=== PATIENT | female | born 1950 | race Caucasian/White ===

== ENCOUNTER → 2016-06-17 20:19 | Outpatient (CLI) | payer MEDICARE, OTHER ==
[2011-04-25 15:24] VITALS: BMI 44.4
[~2016-06-17 20:19] MED LIST: CALCIUM 500 + D1 TAB PO; COUMADIN2.5 MG PO; DYMISTA NASAL; FERROUS SULFAT325 MG PO; FUROSEMIDE20 MG PO; LOTENSIN20 MG PO; OMEPRAZOLE20 M1 PO; PROAIR HFA8.5 GM INH; SINGULAIR10 MG PO; TRACLEER125 MG PO; ZOLOFT100 MG PO
[2016-08-25 12:16] VITALS: BMI 48.1
== END | disposition home or self-care (01) ==
LOC: D.SLEEP 06-12 20:00
DX: G47.33 Obstructive sleep apnea (adult) (pediatric) (principal)

== ENCOUNTER → 2016-07-02 20:10 | Outpatient (CLI) | payer MEDICARE, OTHER ==
[2011-04-25 15:24] VITALS: BMI 44.4
[2016-08-25 12:16] VITALS: BMI 48.1
== END | disposition home or self-care (01) ==
LOC: D.SLEEP 20:00
DX: G47.33 Obstructive sleep apnea (adult) (pediatric) (principal)

== ENCOUNTER 2016-08-21 20:17 | Observation (INO) | payer MEDICARE, OTHER ==
[~2016-08-21] VITALS: Ht 175.3 cm; Wt 147.7 kg
[2016-08-21 21:15] LABS: BASOPHILS 0.4 % (0.0-2.0); HEMATOCRIT 41.6 % (36.0-48.0); HEMOGLOBIN 13.4 g/dL (12-16); IMMATURE GRANULOCYTES 0.2 % (0-5); LYMPHOCYTES 31.3 % (15-50); MCH 29.5 pg (26.0-34.0); MCHC 32.2 g/dL (31.0-37.0); MCV 91.4 fL (80.0-100.0); MEAN PLATELET VOLUME 11.2 fL (7.4-10.4); MONOCYTES 7.2 % (2-11); NEUTROPHILS 59.9 % (40-80); PLATELET COUNT 177 10x3/uL (130-400); RBC 4.55 10x6/uL (4.00-5.40); RDW 14.4 % (11.5-14.5); WBC 9.1 10x3/uL (4.8-10.8)
[2016-08-21 21:27] LABS: ALBUMIN 3.7 g/dL (3.4-5.0); ALKALINE PHOSPHATASE 60 U/L (46-116); ALT (SGPT) 21 U/L (10-68); BILIRUBIN - TOTAL 0.37 mg/dL (0.2-1.3); CALC OSMOLALITY 288 mosm/kg (275-300); CALCIUM 9.2 mg/dL (8.5-10.1); CARBON DIOXIDE 30.9 mmol/L (21.0-32.0); CHLORIDE - SERUM 106 mmol/L (98-107); CREATININE - SERUM 1.2 mg/dL (0.6-1.3); GLUCOSE 96 mg/dL (74-106); POTASSIUM - SERUM 4.1 mmol/L (3.5-5.1); PROTEIN - SERUM 7.6 g/dL (6.4-8.2); SODIUM 143 mmol/L (136-145); UREA NITROGEN 25 mg/dL (7-18); eGFR NON AFRICAN AMERICAN 48 mL/min (90-120)
[2016-08-21 21:40] LABS: CKMB 1.3 U/L (0.0-3.6); CREATINE KINASE 56 UL (21-215); TROPONIN-I < 0.017 ng/mL (0.000-0.060)
[2016-08-21 23:23] LABS: PROTIME 25.4 SECONDS (11.6-15.0)
[2016-08-21 23:24] LABS: D-DIMER-QUANTITATIVE < 0.27 ug/mLFEU (0.20-0.54)
[2016-08-22] VITALS: BP 142/85
--- NOTE | 2016-08-22 01:00 | NUR ---
PT ARRIVES TO FLOOR VIA WC FROM ER ACCOMPANIED BY ER NURSE. INITIAL ASSESSMENT COMPLETED, VSS, AFEBRILE. MEDICATIONS RECONCILED AT THE BEDSIDE. UNIT ROUTINES AND PROTOCOLS DISCUSSED WITH PT AND SHE VERBALIZES UNDERSTANDING. CALL LIGHT WITHIN REACH. WILL CONT TO MONITOR.
[2016-08-22] MEDS ORDERED: TRACLEER125 MG PO (01:09)
[2016-08-22] MEDS ORDERED: LOTENSIN20 MG PO (01:09)
[2016-08-22] MEDS ORDERED: COUMADIN2.5 MG PO (01:10)
[2016-08-22] MEDS ORDERED: SINGULAIR10 MG PO (01:10)
[2016-08-22] MEDS ORDERED: OMEPRAZOLE20 M1 PO (01:10)
[2016-08-22] MEDS ORDERED: ZOLOFT100 MG PO (01:10)
[2016-08-22] MEDS ORDERED: DYMISTA NASAL (01:13)
[2016-08-22] MEDS ORDERED: PROAIR HFA8.5 GM INH (01:14)
[2016-08-22] MEDS ORDERED: FERROUS SULFAT325 MG PO (01:14)
[2016-08-22] MEDS ORDERED: CALCIUM 500 + D1 TAB PO (01:14)
[2016-08-22 01:15] VITALS: Ht 175.3 cm; Wt 147.7 kg
[2016-08-22 04:00] VITALS: BP 118/72
[2016-08-22 07:07] LABS: CKMB 1.5 U/L (0.0-3.6); CREATINE KINASE 47 UL (21-215); TROPONIN-I < 0.017 ng/mL (0.000-0.060)
[2016-08-22 09:09] VITALS: BP 114/65
--- NOTE | 2016-08-22 09:33 | NUR ---
RESTS IN BED WITHOUT NEEDS VOICED. TELEMETRY SR. WILL CONT. PLAN OF CARE.
[2016-08-22 12:31] LABS: CKMB 1.4 U/L (0.0-3.6); CREATINE KINASE 49 UL (21-215); TROPONIN-I < 0.017 ng/mL (0.000-0.060)
[2016-08-22 12:38] VITALS: BP 129/75
--- NOTE | 2016-08-22 14:02 | CN ---
PATIENT NAME:VIN LABOY MEDICAL RECORD: [id number] : 50 LOCATION:D.M2 D.2121 ADMIT DATE: 08/22/16 ACCOUNT: [id number] CONSULTING PHYSICIAN: CECY PETTIT MD REFERRING PHYSICIAN: MEENA PHELPS MD DATE OF CONSULTATION: 08/22/2016 HISTORY OF PRESENT ILLNESS: A 65-year-old lady with no known cardiovascular history. She has a history of hypertension as well as pulmonary hypertension. This actually improved on disease modifying therapies, also on GOOD inhibitor for hypertension, has been having chest tightness and pressure with exertion, difficult to say if this is more of a pulmonary versus true ischemic. She has a right bundle branch block consistent with pulmonary hypertension, does not have voltage criteria for RVH. We are asked to see her concerning her cardiovascular status. PAST MEDICAL HISTORY: 1. History of hypertension. 2. Pulmonary hypertension. 3. Dyslipidemia. 4. Long-term use of high risk medication. ALLERGIES: None known. MEDICATIONS: Include omeprazole 20 mg p.o. day, Singulair 10 p.o. q.h.s., TriCor 120 p.o. b.i.d., Zoloft 100 daily, Lotensin 20 b.i.d., Coumadin scale, albuterol. SOCIAL HISTORY: Lives here in [place], , nonsmoker. He takes care of her ADLs, does try to walk. PHYSICAL EXAMINATION: GENERAL: Pleasant gentleman, in no acute distress. VITAL SIGNS: Blood pressure 118/72; pulse 70, regular. HEENT: Normocephalic, atraumatic. NECK: No JVD or bruit. HEART: Regular, probable right ventricular gallops. LUNGS: Actually fairly good air excursion. ABDOMEN: Soft and nontender. EXTREMITIES: Pulses 2+. There is 1+ edema. NEUROLOGIC: Grossly intact. DIAGNOSTIC DATA: ECG is abnormal as described above. IMPRESSION: Questionable progressive exertional angina. PLAN: We will plan for diagnostic angiography. We would prefer for Coumadin to come and we will plan this Thursday, can be done as an outpatient. INRs have been quite stable and did not want to reverse this if all possible. TRANSINT:[id number] Voice Confirmation ID: [id number] DOCUMENT ID: [id number] CONSULT REPORT [id number] LABOY,CECY ORTIZ MD at 1402 CC: [id number] DICTATION DATE: 08/22/16 0857 DISK RECORDIST: 08/22/16 1249 ADM IN [facility] [address] [place] [address]
--- NOTE | 2016-08-22 15:42 | NUR ---
IV AND TELEMETRY DCD. DC PLANS GIVEN. UNDERSTANDING VOICED. ESCORTED TO CAR BY W/C.
== END 2016-08-22 15:43 | disposition home or self-care (01) ==
LOC: D.ER 20:17 → D.M2 08-22 00:19 → OBSVTIME 08-22 00:19 → D.M2 08-22 00:19
PROVIDERS: Emergency Medicine; ADMIT Family Medicine Adult Medicine
DX: R07.9 Chest pain, unspecified (principal); I10 Essential (primary) hypertension; I27.2 Other secondary pulmonary hypertension; E78.5 Hyperlipidemia, unspecified; G47.33 Obstructive sleep apnea (adult) (pediatric)

== ENCOUNTER 2016-08-25 11:24 | Outpatient (CLI) | payer MEDICARE, OTHER ==
[~2016-08-25] VITALS: Ht 175.3 cm; Wt 147.7 kg
--- NOTE | ~2016-08-25 | HEMODYNAMI ---
PATIENT:VIN LABOY MEDICAL RECORD: [id number] : 50 LOCATION:D.CAT ADMISSION DATE: 08/25/16 Generatedon:08/25/201614:42 Patient name: VIN LABOY Patient #: [id number] SSN: D OB: 1950 Date of study: 08/25/2016 Page: Of Hemodynamic Procedure Report Patient Data Patient Demographics Procedure consent was obtained First Name: VIN Gender: Female Last Name: NARDA : 1950 Middle Initial: A Age: 65 year(s) Patient #: [id number] Race: Additional ID: [id number] Contact details Address: [address] [place] [address] State: [place] City: [facility] Zip code: [address] Past Medical History Allergies Allergen Reaction Date Comments Reported Other allergy 08/25/2016 Flu Shots Admission Admission Data Admission Date: 08/25/2016 Admission Time: 11:24 Height (in.): 69 BSA: 2.54 (m2) Height (cm.): 175.26 BMI: 47.99 (kg/m2) Weight (lbs.): 325 Weight (kg.): 147.42 Lab Results Lab Result Date: 08/25/2016 Lab Result Time: 0:00 Biochemistry Name Units Result Min Max Creatinine mg/dl 1.1 --(--*-)-- 0.6 1.3 CBC Name Units Result Min Max Hemoglobin g/dl 13 -*(----)-- 13.5 17.5 Coagulation Name Units Result Min Max INR units 1.82 --(----)-* 0.85 1.17 PT sec 21 --(----)-* 11.6 15 Procedure Procedure Types Cath Procedure Diagnostic Procedure [facility] w/Coronaries Miscellaneous Procedures Moderate Sedation up to 15 minutes Procedure Description Procedure Date Procedure Date: 08/25/2016 Procedure Start Time: 14:12 Procedure End Time: 14:35 Procedure Staff Name Function Shay Hall MD Performing Physician Roger Summers RT Scrub Marcio Barkley RN Nurse Lora Young RT Monitor Wellington Becker RT Monitor Melissa De La Torre RT Monitor Marleni Arreola RN Nurse Procedure Data Cath Procedure Fluoroscopy Diagnostic fluoroscopy Total fluoroscopy Time: 6.4 time: 6.4 min min Diagnostic fluoroscopy Total fluoroscopy dose: dose: 1144 mGy 1144 mGy Contrast Material Contrast Material Type Amount (ml) Isovue 300 81 Entry Location Entry Primary Successful Side Size Upsize Upsize Entry Closure [place] ccessful Closure Location (Fr) 1 (Fr) 2 (Fr) Remarks Device Remarks Radial Right 6 Fr Mechanical tr band artery Short Compression Femoral Right 5 Fr Exoseal artery Estimated blood loss: 10 ml Diagnostic catheters Device Type Used For End Catheter Placement Terumo 5Fr [place] 110cm Procedure catheter Diagnostic Infinity 5Fr Right Coronary 3DRC catheter Angiography Procedure Complications No complications Procedure Medications Medication Administration Route Dosage Oxygen NC 2 l/min Heparin Flush Bag added to field 2 bags (1000units/500ml NS) 0.9% NaCl I.V. 100 ml/hr Radial Cocktail added to field 1 syringe (Verapomil 2mg/Nitro 400mcg/Heparin 1500units) Fentanyl I.V. 50 mcg Versed I.V. 1 mg Fentanyl I.V. 50 mcg Versed I.V. 1 mg Fentanyl I.V. 50 mcg Radial Cocktail I.A. 1 syringe (Verapomil 2mg/Nitro 400mcg/Heparin 1500units) Fentanyl I.V. 50 mcg Hemodynamics Rest BSA: 2.54 (m2) HGB: 13 (g/dl) O2 Consumption: Estimated: 249.75 (ml/min) O2 Cons umption indexed: Estimated:98.33 (ml/min/m) Heart Rate: 83 (bpm) Pressure Samples Time Site Value (mmHg) Purpose Heart Use Rate(bpm) 14:16 LV 106/5,12 Snapshot 63 Gradients Valve Time Site Site Mean SEP/DFP Peak To Heart Use 1 2 (mmHg) (sec/min) Peak Rate (mmHg) (bpm) Aortic 14:17 LV AO 89 Snapshots Pre Cath Intra NCS Post Cath Vital Signs Time Heart Resp SPO2 NIBP (mmHg) Rhythm Pain Sedation Rate (ipm) (%) Status Level (bpm) 13:47:20 89 29 94 165/90(132) NSR 0 (11) 10(A) , No pain 13:51:47 85 18 94 154/93(126) NSR 0 (11) 10(A) , No pain 13:56:19 84 18 94 140/88(109) NSR 0 (11) 10(A) , No pain 14:00:43 86 19 94 151/89(118) NSR 0 (11) 10(A) , No pain 14:05:13 84 19 95 154/85(106) NSR 0 (11) 10(A) , No pain 14:09:44 65 18 96 137/86(100) NSR 0 (11) 10(A) , No pain 14:14:47 65 19 94 130/72(104) NSR 0 (11) 10(A) , No pain 14:19:03 71 18 93 127/82(99) NSR 0 (11) 10(A) , No pain 14:23:23 70 16 93 131/87(113) NSR 0 (11) 10(A) , No pain 14:27:47 70 16 93 121/83(107) NSR 0 (11) 10(A) , No pain 14:32:07 68 17 94 139/80(105) NSR 0 (11) 10(A) , No pain Medications Time Medication Route Dose Verified Delivered Reason Notes Effectiveness by by 13:45:09 Oxygen NC 2 l/min Marcio Buckley Per Filippo Barkley RN physician RN 13:45:19 Heparin Flush added 2 bags Marcio Buckley used for Bag to Filippo Barkley vibration analyst (1000units/500ml field RN NS) 13:45:30 0.9% NaCl I.V. 100 Marcio Buckley Per ml/hr Filippo Barkley RN physician RN 14:07:34 Radial Cocktail added 1 Marcio Marcio used for (Verapomil to syringe Filippo Barkley vibration analyst 2mg/Nitro field RN 400mcg/Heparin 1500units) 14:08:00 Fentanyl I.V. 50 mcg Marcio Marcio for sedation Filippo Barkley RN RN 14:08:07 Versed I.V. 1 mg Marcio Marcio for sedation Filippo Barkley RN RN 14:10:25 Fentanyl I.V. 50 mcg Marcio Marcio for sedation Filippo Barkley RN RN 14:10:30 Versed I.V. 1 mg Marcio Buckley for sedation Filippo Barkley RN RN 14:14:06 Fentanyl I.V. 50 mcg Marcio Buckley for sedation Filippo Barkley RN RN 14:15:09 Radial Cocktail I.A. 1 Marcio Day for (Verapomil syringe Filippo Hall vasodilation 2mg/Nitro RN 400mcg/Heparin 1500units) 14:15:16 Fentanyl I.V. 50 mcg Marcio Buckley for sedation Filippo Barkley RN auto electrical technician Log Time Note 13:22:14 Diagnostic Cath Status : Elective 13:23:27 Time tracking: Regular hours 13:23:31 Plan of Care:Hemodynamics will remain stable., Cardiac rhythm will remain stable., Comfort level will be maintained., Respiratory function will remain adequate., Patient/ family verbilizes understanding of procedure., Procedure tolerated without complication., Recovers from procedure without complications.. 13:26:05 Marcio Barkley RN sent for patient. Start room use. 13:30:27 Lab Result : Creatinine 1.1 mg/dl 13:30:27 Lab Result : PT 21 sec 13:30:27 Lab Result : Hemoglobin 13 g/dl 13:30:27 Lab Result : INR 1.82 units 13:32:47 Patient received from Pre/Post Procedure Room to CCL 1 Alert and oriented. Tansferred to table in Supine position. 13:32:49 Warm blankets applied, and atiya hugger turned on for patient comfort. 13:32:51 Correct patient and procedure confirmed by team. 13:32:53 Signed procedure consent form obtained from patient. 13:32:54 ECG and BP/O2 sat monitors applied to patient. 13:32:54 Full Disclosure recording started 13:45:09 Oxygen 2 l/min NC was given by Marcio Barkley RN; Per physician; 13:45:19 Heparin Flush Bag (1000units/500ml NS) 2 bags added to field was given by Marcio Barkley RN; used for procedure; 13:45:30 0.9% NaCl 100 ml/hr I.V. was given by Marcio Barkley RN; Per physician; 13:45:57 Vital chart was started 13:47:36 Baseline sample Acquired. 13:47:43 Rhythm: sinus rhythm 13:48:52 H&P Date Dictated: 08/25/2016 Within 30 days and on chart.. 13:49:02 Pre-procedure instructions explained to patient. 13:49:03 Pre-op teaching completed and patient verbalized understanding. 13:49:04 Family in waiting room. 13:49:07 Patient NPO since Midnight. 13:49:20 Patient allergic to Other allergyFlu Shots 13:49:23 Is the patient allergic to Iodine/contrast media? No. 13:49:26 Is patient on blood thinner?No 13:49:45 Patient diabetic? No. 13:49:52 Previous problem with sedation/anesthesia? No ? 13:49:53 Snore? Yes 13:49:54 Sleep apnea? Yes 13:49:55 Deviated septum? No 13:49:56 Opens mouth fully? Yes 13:49:56 Sticks out tongue? Yes 13:50:00 Airway obstruction? No ? 13:50:04 Dentures? No ? 13:50:08 Pre procedure: right dorsailis pedis pulse 2+ Normal; easily identifiable; not easily obliterated 13:50:10 Modified Corey's test Ulnar < 7 seconds 13:50:12 Patient pain scale 0/10 ?. 13:50:17 IV patent on arrival in left hand with 0.9% NaCl at O. 13:50:21 Lab results completed and on chart. 13:50:25 Right Radial & Right Groin area was prepped with chlora-prep and draped in sterile fashion 13:50:26 Alarms reviewed by R. N. 13:50:26 Sharps counted by scrub and verified by R.N. 13:50:29 Use device set Radial Dx 13:50:30 Acist Syringe opened to sterile field. 13:50:30 Medline Cath Pack opened to sterile field. 13:50:31 Bag Decanter opened to sterile field. 13:50:31 Terumo 6Fr Slender Glidesheath opened to sterile field. 13:50:31 St Greg 260cm J .035 wire opened to sterile field. 13:50:32 Acist Hand Control opened to sterile field. 13:50:33 Acist Manifold opened to sterile field. 13:50:33 Tegaderm 4 x 4 opened to sterile field. 13:58:03 --------ALL STOP TIME OUT------ 13:58:03 Final Timeout: patient, procedure, and site verified with staff and physician. All members of the team are in agreement. 13:58:06 Right Radial & Right Groin site verified by team. 13:58:09 Physical assessment completed. ASA score P 2 - A patient with mild systemic disease as per Shay Hall MD. 13:58:15 Sedation plan: IV Moderate Sedation Versed, Fentanyl 13:58:40 Lora Young RT(R) was relieved by Wellington Becker RT(R) as monitoring person 13:58:56 ACC Patient presents with Stable Angina CCS Anginal Class 2--Slight limitation of ordinary activity. 13:59:28 Patient Weight : 147.42 kg 13:59:32 Patient Height : 175.26 cm 14:00:26 Zero performed for pressure channel P1 14:00:45 Zero performed for pressure channel P1 14:00:47 Zero performed for pressure channel P1 14:00:57 Zero performed for pressure channel P1 14:01:00 Zero performed for pressure channel P1 14:01:02 Zero performed for pressure channel P1 14:01:05 Zero performed for pressure channel P1 14:01:07 Zero performed for pressure channel P1 14:01:09 Zero performed for pressure channel P1 14:01:12 Zero performed for pressure channel P1 14:01:14 Zero performed for pressure channel P1 14:01:17 Zero performed for pressure channel P1 14:01:19 Zero performed for pressure channel P1 14:01:27 Zero performed for pressure channel P1 14:01:29 Zero performed for pressure channel P1 14:02:34 Zero performed for pressure channel P1 14:02:40 Zero performed for pressure channel P1 14:02:45 Zero performed for pressure channel P1 14:02:50 Zero performed for pressure channel P1 14:02:53 Zero performed for pressure channel P1 14:03:27 Zero performed for pressure channel P1 14:03:30 Zero performed for pressure channel P1 14:03:34 Zero performed for pressure channel P1 14:03:43 Zero performed for pressure channel P1 14:03:45 Zero performed for pressure channel P1 14:03:52 Zero performed for pressure channel P1 14:03:58 Zero performed for pressure channel P1 14:04:02 Zero performed for pressure channel P1 14:04:07 Zero performed for pressure channel P1 14:04:42 Zero performed for pressure channel P1 14:05:07 Zero performed for pressure channel P1 14:07:34 Radial Cocktail (Verapomil 2mg/Nitro 400mcg/Heparin 1500units) 1 syringe added to field was given by Marcio Barkley RN; used for procedure; 14:08:00 Fentanyl 50 mcg I.V. was given by Marcio Barkley RN; for sedation; 14:08:00 Zero performed for pressure channel P1 14:08:03 Zero performed for pressure channel P1 14:08:05 Zero performed for pressure channel P1 14:08:07 Versed 1 mg I.V. was given by Marcio Barkley RN; for sedation; 14:08:09 Zero performed for pressure channel P1 14:08:38 Zero performed for pressure channel P1 14:08:40 Zero performed for pressure channel P1 14:09:01 Zero performed for pressure channel P1 14:09:04 Zero performed for pressure channel P1 14:10:10 Zero performed for pressure channel P1 14:10:25 Fentanyl 50 mcg I.V. was given by Marcio Barkley RN; for sedation; 14:10:30 Versed 1 mg I.V. was given by Marcio Barkley RN; for sedation; 14:11:03 Zero performed for pressure channel P1 14:11:09 Zero performed for pressure channel P1 14:11:29 Zero performed for pressure channel P1 14:11:53 Zero performed for pressure channel P2 14:11:57 Zero performed for pressure channel P2 14:12:03 Zero performed for pressure channel P2 14:12:16 Procedure started. 14:12:22 Local anesthetic to right radial artery with Lidocaine 2% by Shay Hall MD.INITIAL ACCESS ONLY 14:12:29 A 6 Fr Short sheath was inserted into the Right Radial artery 14:14:06 Fentanyl 50 mcg I.V. was given by Marcio Barkley RN; for sedation; 14:15:09 Radial Cocktail (Verapomil 2mg/Nitro 400mcg/Heparin 1500units) 1 syringe I.A. was given by Shay Hall MD; for vasodilation; 14:15:16 Fentanyl 50 mcg I.V. was given by Marcio Barkley RN; for sedation; 14:15:54 A Surreal InkumNovitaz 5Fr Bingham 110cm catheter was advanced over the wire and used for Procedure. 14:16:01 LV angiography performed. 14:17:24 EF : 55 % 14:17:29 LCA angiography performed. 14:21:00 Catheter removed. 14:22:26 Medtronic Launcher 6Fr HS I guide catheter opened to sterile field. 14:25:11 Unable to access the RCA. 14:25:39 Terumo 5Fr [place] Sheath opened to sterile field. 14:25:45 Local anesthetic to right femoral artery with Lidocaine 2% by Shay Hall MD.ADDITIONAL ACCESS 14:27:12 A 5 Fr sheath was inserted into the Right Femoral artery 14:28:00 A Diagnostic Infinity 5Fr 3DRC catheter was advanced over the wire and used for Right Coronary Angiography. 14:28:03 RCA angiography performed. 14:29:16 Catheter removed. 14:29:40 Cordis 5Fr Exoseal opened to sterile field. 14:30:24 Terumo TR Band Standard opened to sterile field. 14:30:56 Sheath removed intact; hemostasis achieved with Exoseal to the Right Femoral artery. 14:31:08 Sheath removed intact; hemostasis achieved with Mechanical Compression to the Right Radial artery. 14:31:11 Procedure ended.(Physican Out) 14:32:21 Fluoroscopy time 06.40 minutes. 14:32:28 Fluoroscopy dose: 1144 mGy 14:32:28 Flurop Dose total: 1144 14:32:33 Contrast amount:Isovue 300 81ml. 14:32:35 Sharps counted by scrub and verified by R.N. 14:33:15 TR band inflated with 14cc of air. 14:33:17 Insertion/operative site no bleeding no hematoma. 14:33:23 Post-op/insertion site Right Femoral artery dressed using a 4 x 4 and Tegaderm. 14:33:27 Post right femoral artery:stable 14:33:33 Post right radial artery:stable 14:33:37 Post Procedure Pulses reassessed and unchanged 14:33:42 Post-procedure physical assessment completed. ASA score P 2 - A patient with mild systemic disease as per Shay Hall MD. 14:33:48 Post procedure rhythm: unchanged. 14:33:51 Estimated blood loss: 10 ml 14:33:53 Post procedure instruction explained to patient.Patient verbalizes understanding. 14:34:12 Procedure type changed to Cath procedure, Diagnostic procedure, LHC, LHC w/Coronaries, Miscellaneous Procedures, Moderate Sedation up to 15 minutes 14:34:15 Procedure and supply charges have been captured, reviewed, submitted and are correct. 14:34:40 Procedure Complication : No complications 14:34:44 Vital chart was stopped 14:34:45 See physician's report for complete and final results. 14:35:00 Report given to Outpatients. 14:35:05 Patient transfered to Outpatients with Stretcher. 14:35:08 Procedure ended. 14:35:08 Full Disclosure recording stopped 14:35:13 End room use (Document Last) Device Usage Item Name Manufacture Quantity Catalog Hospital Part Current Minimal Lot# / Number Charge Number Stock Stock Serial# Code Acist Acist 1 33730 197819 209138 089968 20 Syringe Medical Systems Inc Medline Cardinal 1 [id number] 215047 67080 999207 5 Cath Pack Health Bag Microtek 1 2001S 253317 66437 412177 5 DecRenaissance Learning [employer]. Terumo 6Fr Terumo 1 [id number] 566312 848850 808710 [address] St Greg 1 131843 673362 731096 639496 30 260cm J .035 wire Acist Hand Acist 1 25292 768001 397681 588598 5 Control Medical Systems Inc Acist Acist 1 55178 127889 898811 230199 5 Manifold Medical Systems Inc Tegaderm 4 3M 1 1626W 063037 825957 516490 5 x 4 Terumo 5Fr Terumo 1 405013 105604 866676 106236 5 Bingham 110cm catheter Medtronic Medtronic 1 [id number] 676117 34421 882895 1 Launcher 6Fr HS I guide catheter Terumo 5Fr Terumo 1 [id number] 186634 873263 844228 40 [place] Sheath Diagnostic Cardinal 1 [id number] 680168 060171 445959 9 ActiveTrak Health 5Fr 3DRC catheter Cordis 5Fr Cardinal 1 EX500 983387 341570 240510 10 Genabilityeal Health Terumo TR Terumo 1 [id number] 205657 151841 022890 40 Band Standard Signature Audit [place] Stage Time Signature Unsigned Intra-Procedure 08/25/2016 Melissa De La Torre 2:42:23 PM RT(R) Signatures Monitor : Lora Signature : Counts RT Date : Time : Monitor : Wellington Suit RT Signature : Date : Time : Monitor : Melissa Wil Signature : RT Date : Time : [address] [address] [place] [address]
[~2016-08-25 11:24] MED LIST changes: -FUROSEMIDE20 MG PO
[2016-08-25] MEDS ORDERED: COUMADIN2.5 MG PO (12:11)
[2016-08-25] MEDS ORDERED: FUROSEMIDE20 MG PO (12:13)
[2016-08-25 12:16] VITALS: BP 134/89; Ht 175.3 cm; Wt 147.7 kg
[2016-08-25 12:40] LABS: BASOPHILS 0.6 % (0.0-2.0); EOSINOPHILS 1.2 % (0-7); HEMATOCRIT 39.9 % (36.0-48.0); IMMATURE GRANULOCYTES 0.3 % (0-5); MCH 29.5 pg (26.0-34.0); MCHC 32.6 g/dL (31.0-37.0); MCV 90.7 fL (80.0-100.0); MEAN PLATELET VOLUME 12.5 fL (7.4-10.4); MONOCYTES 6.6 % (2-11); NEUTROPHILS 65.3 % (40-80); RDW 14.8 % (11.5-14.5); WBC 6.5 10x3/uL (4.8-10.8)
[2016-08-25 12:44] LABS: PLATELET COUNT 216 10x3/uL (130-400)
[2016-08-25 12:53] LABS: INR 1.82 (0.85-1.17)
[2016-08-25 13:14] LABS: ANION GAP 11.2 mmol/L (8-16); CALCIUM 9.5 mg/dL (8.5-10.1); CARBON DIOXIDE 29.1 mmol/L (21.0-32.0); CREATININE - SERUM 1.1 mg/dL (0.6-1.3); POTASSIUM - SERUM 4.3 mmol/L (3.5-5.1)
--- NOTE | 2016-08-25 14:56 | NUR ---
1445 VSS WITH CHEST PAIN DENIET TR BAND TO R/WRIST CDI NO BLEEDING NO HEMATOMA NOTED. 5 FR EXOSEAL R/GROIN CDI NO BLEEDING NO HEMATOMA NOTED
--- NOTE | 2016-08-25 15:15 | NUR ---
1515 PATIENT VOIDS 400 CC CLEAR YELLOW URINE TO BEDPAN. AISHA CARE PROVIDED 1545 RESTING QUIETLY WITH EYES CLOSED VSS NO DISTRESS NOTED
--- NOTE | 2016-08-25 16:14 | NUR ---
4 CC AIR REMOVED FROM TR BAND WITH NO BLEEDING NO HEMATOMA NOTED 5 FR EXOSEAL R/GROIN CDI NO BLEEDING NO HEMATOMA NOTED. PATIENT DENIED CHEST PAIN REPOSITIONED TO SITTING WITH HOB UP 30 DEGREES
--- NOTE | 2016-08-25 16:22 | NUR ---
PIV REMOVED WITH DRESSING APLLIED. CHEST PAIN DENIED 4 CC AIR REMOVED FROM TR BAND WITH NO BLEEDING NOTED. 5 FR EXOSEAL R/GROIN CDI PATIENT UP TO GET DRESSED FOR DISCHARGE HOME
--- NOTE | 2016-08-25 16:28 | NUR ---
VERBAL AND WRITTEN DISCHARGE GONE OVER WITH PATIENT TR BAND REMOVED WITH NO BLEEDING NO HEMATOMA NOTED. DRESSING APPLIED.5 FR EXOSEAL R/GROIN CDI NO BLEEDING NO HEMATOMA NOTED CHEST PAIN DENIED PATIENT TRANSPORTED VIA TO [facility] FOR FAMILY TO DRIVE HOME
--- NOTE | 2016-08-27 12:18 | OP ---
PATIENT NAME: VIN LABOY MEDICAL RECORD: [id number] :[birth year] LOCATION:D.CAT ADMISSION DATE: SURGEON: CECY PETTIT MD DATE OF OPERATION: 08/25/2016 PROCEDURE: Left heart catheterization, selective coronary angiography, right radial and femoral artery approach. CATHETERS: A 5-Polish sheath, 5/4 left and right Jeanna, 5/4 pig. The procedure was well tolerated. The patient returned to the hill. Sheath removed. ExoSeal and TR band were placed ____. FINDINGS: Left ventriculography in the 30-degree FOFANA view: Normal wall motion and normal systolic function. CORONARY ANATOMY: Left main: Left main is free of disease. LAD: Free of disease in the diagonal system. CIRCUMFLEX: Free of disease in the marginal system. RIGHT CORONARY ARTERY: Dominant artery, free of disease. IMPRESSION: Normal left ventricular systolic function. Normal coronary anatomy. TRANSINT:[id number] Voice Confirmation ID: [id number] DOCUMENT ID: [id number] CECY PETTIT MD at 1218 CC: [id number] DICTATION DATE: 08/25/16 1439 COMMUNITY ARTIST: 08/25/16 2202 DEP CLI 08/25/16 [address] [place] [address]
== END 2016-08-25 16:31 | disposition home or self-care (01) ==
LOC: D.CATH 11:24
PROVIDERS: Internal Medicine Interventional Cardiology
DX: I20.9 Angina pectoris, unspecified (principal)

== ENCOUNTER 2018-07-01 11:05 | Inpatient (IN) | payer MEDICARE ==
[~2018-07-01] VITALS: Ht 167.6 cm; Wt 147.4 kg
[~2018-07-01 11:05] MED LIST changes: +FUROSEMIDE20 MG PO
[2018-07-01 14:06] LABS: BASOPHILS 0.4 % (0-2); EOSINOPHILS 0 % (0-7); IMMATURE GRANULOCYTES 0.3 % (0-5); LYMPHOCYTES 23.7 % (15-50); MCH 30.9 pg (26.0-34.0); MCHC 31.5 g/dL (31.0-37.0); MCV 98.3 fL (80.0-100.0); MEAN PLATELET VOLUME 9.1 fL (7.4-10.4); MONOCYTES 8.9 % (2-11); NEUTROPHILS 66.7 % (40-80); RDW 21.1 % (11.5-14.5); WBC 6.7 10x3/uL (4.8-10.8)
[2018-07-01] MEDS ORDERED: ADCIRCA20 MG PO (14:12)
[2018-07-01] MEDS ORDERED: IMODIUM2 MG PO (14:13)
[2018-07-01] MEDS ORDERED: CLARITIN 10 MG10 MG PO (14:13)
[2018-07-01 14:14] VITALS: BP 126/60; BMI 52.5
[2018-07-01 14:16] LABS: HEMATOCRIT 17.8 % (36.0-48.0); HEMOGLOBIN 5.6 g/dL (12-16); PLATELET COUNT 140 10x3/uL (130-400); RBC 1.81 10x6/uL (4.00-5.40)
[2018-07-01 14:20] LABS: ALBUMIN 2.7 g/dL (3.4-5.0); ANION GAP 13.4 mmol/L (8-16); BILIRUBIN - TOTAL 0.19 mg/dL (0.2-1.3); CALCIUM 8.9 mg/dL (8.5-10.1); CARBON DIOXIDE 26.9 mmol/L (21.0-32.0); CREATININE - SERUM 1.4 mg/dL (0.6-1.3); POTASSIUM - SERUM 4.3 mmol/L (3.5-5.1); PROTEIN - SERUM 5.7 g/dL (6.4-8.2)
[2018-07-01 16:00] VITALS: BP 117/67
[2018-07-01 19:52] VITALS: BP 133/82
[2018-07-01 22:25] VITALS: BP 108/48
[2018-07-01 22:40] VITALS: BP 120/57
[2018-07-02] VITALS (7 sets, daily range): BP systolic 101–138; BP diastolic 51–80; Ht 167.6 cm; Wt 147.4 kg
[2018-07-02 05:22] LABS: BASOPHILS 0.4 % (0-2); EOSINOPHILS 0.2 % (0-7); IMMATURE GRANULOCYTES 0.4 % (0-5); MCH 30.6 pg (26.0-34.0); MEAN PLATELET VOLUME 10.3 fL (7.4-10.4); MONOCYTES 12.6 % (2-11); NEUTROPHILS 59.4 % (40-80); PLATELET COUNT 135 10x3/uL (130-400); RBC 2.09 10x6/uL (4.00-5.40); RDW 20.8 % (11.5-14.5); WBC 5.3 10x3/uL (4.8-10.8)
[2018-07-02 05:24] LABS: HEMOGLOBIN 6.4 g/dL (12-16)
[2018-07-02 05:25] LABS: MCV 95.7 fL (80.0-100.0)
[2018-07-02 06:49] LABS: ANION GAP 13.6 mmol/L (8-16); CALCIUM 8.4 mg/dL (8.5-10.1); CARBON DIOXIDE 24.5 mmol/L (21.0-32.0); CREATININE - SERUM 1.4 mg/dL (0.6-1.3); POTASSIUM - SERUM 4.1 mmol/L (3.5-5.1)
[2018-07-02 11:30] LABS: APTT 38.6 SECONDS (22.8-39.4); INR 3.46 (0.85-1.17)
[2018-07-03 04:00] VITALS: BP 109/61
[2018-07-03 06:30] LABS: BASOPHILS 0.3 % (0-2); EOSINOPHILS 0.3 % (0-7); IMMATURE GRANULOCYTES 0.3 % (0-5); LYMPHOCYTES 26.4 % (15-50); MCHC 32.7 g/dL (31.0-37.0); MEAN PLATELET VOLUME 10.2 fL (7.4-10.4); MONOCYTES 11.7 % (2-11); PLATELET COUNT 120 10x3/uL (130-400); RDW 20.1 % (11.5-14.5); WBC 6.6 10x3/uL (4.8-10.8)
[2018-07-03 06:33] LABS: HEMOGLOBIN 8.5 g/dL (12-16); MCV 91.9 fL (80.0-100.0); RBC 2.83 10x6/uL (4.00-5.40)
[2018-07-03 06:40] LABS: INR 2.48 (0.85-1.17); PROTIME 26.1 SECONDS (11.6-15.0)
[2018-07-03 06:46] LABS: ANION GAP 13.1 mmol/L (8-16); CALCIUM 8.9 mg/dL (8.5-10.1); CARBON DIOXIDE 25.3 mmol/L (21.0-32.0); CREATININE - SERUM 1.2 mg/dL (0.6-1.3); POTASSIUM - SERUM 4.4 mmol/L (3.5-5.1)
[2018-07-03 08:30] VITALS: BP 120/42
[2018-07-03 12:30] VITALS: BP 140/72
[2018-07-03 20:00] VITALS: BP 131/54
[2018-07-04] VITALS: BP 116/59
[2018-07-04 04:00] VITALS: BP 112/49
[2018-07-04 06:37] LABS: BASOPHILS 0.7 % (0-2); EOSINOPHILS 0.9 % (0-7); IMMATURE GRANULOCYTES 0.7 % (0-5); LYMPHOCYTES 28.6 % (15-50); MCH 29.9 pg (26.0-34.0); MCHC 31.7 g/dL (31.0-37.0); MEAN PLATELET VOLUME 10.3 fL (7.4-10.4); MONOCYTES 13.1 % (2-11); PLATELET COUNT 120 10x3/uL (130-400); RBC 3.35 10x6/uL (4.00-5.40); RDW 19.1 % (11.5-14.5); WBC 5.7 10x3/uL (4.8-10.8)
[2018-07-04 06:48] LABS: ALBUMIN 2.7 g/dL (3.4-5.0); ANION GAP 12.4 mmol/L (8-16); BILIRUBIN - TOTAL 0.34 mg/dL (0.2-1.3); CALCIUM 8.7 mg/dL (8.5-10.1); CREATININE - SERUM 1.4 mg/dL (0.6-1.3); POTASSIUM - SERUM 4.4 mmol/L (3.5-5.1); PROTEIN - SERUM 5.9 g/dL (6.4-8.2)
[2018-07-04 06:49] LABS: HEMATOCRIT 31.5 % (36.0-48.0)
[2018-07-04 07:06] LABS: INR 1.48 (0.85-1.17); PROTIME 17.3 SECONDS (11.6-15.0)
[2018-07-04 08:56] VITALS: BP 130/76
[2018-07-04 14:31] VITALS: BP 123/65
[2018-07-04 17:52] VITALS: BP 101/46
[2018-07-04 20:46] VITALS: BP 107/64
[2018-07-05] VITALS: BP 101/67; BP 108/59
[2018-07-05 06:57] LABS: ANION GAP 9.3 mmol/L (8-16); CALCIUM 8.9 mg/dL (8.5-10.1); CARBON DIOXIDE 29.2 mmol/L (21.0-32.0); CREATININE - SERUM 1.2 mg/dL (0.6-1.3); POTASSIUM - SERUM 4.5 mmol/L (3.5-5.1)
[2018-07-05 07:11] LABS: INR 1.31 (0.85-1.17); PROTIME 15.8 SECONDS (11.6-15.0)
[2018-07-05 07:48] LABS: BASOPHILS 0.4 % (0-2); EOSINOPHILS 1.3 % (0-7); HEMATOCRIT 31.7 % (36.0-48.0); HEMOGLOBIN 10.1 g/dL (12-16); IMMATURE GRANULOCYTES 0.1 % (0-5); MCH 30.3 pg (26.0-34.0); MCHC 31.9 g/dL (31.0-37.0); MCV 95.2 fL (80.0-100.0); MONOCYTES 12.7 % (2-11); NEUTROPHILS 69.5 % (40-80); PLATELET COUNT 117 10x3/uL (130-400); RBC 3.33 10x6/uL (4.00-5.40); RDW 18.8 % (11.5-14.5)
[2018-07-05 09:18] VITALS: BP 121/61
[2018-07-05 11:52] VITALS: BP 103/62
--- NOTE | 2018-07-05 15:13 | MORECARE ---
CASE MANAGEMENT DISCHARGE SUMMARY PATIENT: VIN LABOY ELIANA UNIT: [id number] ADM DATE: 07/01/18 AGE: 67 : 50 SEX: F ROOM/BED: D.220 AUTHOR: KARINA GREENWOOD PHYSICIAN: REFERRING PHYSICIAN: MITCH CASILLAS MD DATE OF SERVICE: 07/05/18 Discharge Plan Patient Name: VIN LABOY Facility: [facility]:[place] : 1950 Planned Disposition: Home Anticipated Discharge Date: Discharge Date: Expected LOS: Initial Reviewer: [email or web address] Initial Review Date: 07/01/2018 Generated: 07/05/18 4:13 pm Comments DCP- Discharge Planning Updated by [email or web address]: Elida Buenrostro on 07/05/18 2:[address] Patient Name: VIN LABOY Admission Status: Urgent Accout number: [id number] Admission Date: 07-01-2018 : 1950 Admission Diagnosis:ANEMIA, UNSPECIFIED Attending: MITCH CASILLAS Current LOS: 4 Anticipated DC Date: Planned Disposition: Home Primary Insurance: MEDICARE A & B Discharge Planning Comments: CM met with patient to assess discharge planning needs. Patient lives independently at home and her daughter lives with her where she plans on returning at discharge. She stated that there are 4 steps to her home. She has home O2 (concentrator and portable concentrator) [employer], electric wheelchair, walker. Her son will be the one to drive her home at DC. She does not think she will need HH at [place]. CM will continue to follow and assist with DC planning needs. Quality Control Systems Manager: Elida Buenrostro DCPIA - Discharge Planning Initial Assessment Updated by [email or web address]: Elida Buenrostro on 07/05/18 3:07 pm * Is the patient Alert and Oriented? Yes * How many steps to enter\exit or inside your home? * PCP dr beatty * Pharmacy [facility] * Preadmission Environment Home with Family * ADLs Independent * Equipment Oxygen Power Chair or Electric Scooter Rolling Walker * Other Equipment portable o2 concentrator home o2 concentrator * List name and contact numbers for known caregivers / representatives who currently or will assist patient after discharge: ASIYA LABOY [phone] * Verbal permission to speak to the caregivers and representatives has been obtained from the patient. N/A * Community resources currently utilized None * Additional services required to return to the preadmission environment? No * Can the patient safely return to the preadmission environment? Yes * Has this patient been hospitalized within the prior 30 days at any hospital? No Patient Name: VIN LABOY Page [id number] at 1513 All edits/amendments must be made on the electronic document DICTATION DATE: 07/05/181512 SCALE CLERK: DAVID 07/05/181512 RPT#: [id number] DC DATE: STATUS: ADM IN [facility] [address] [place] [address] END OF REPORT
[2018-07-05 16:29] VITALS: BP 102/56
[2018-07-05 20:00] VITALS: BP 109/66
[2018-07-06 04:00] VITALS: BP 97/59
[2018-07-06 06:08] LABS: BASOPHILS 0.3 % (0-2); EOSINOPHILS 1.2 % (0-7); HEMATOCRIT 31.6 % (36.0-48.0); HEMOGLOBIN 9.9 g/dL (12-16); IMMATURE GRANULOCYTES 0.3 % (0-5); LYMPHOCYTES 17.8 % (15-50); MCH 30.2 pg (26.0-34.0); MCHC 31.3 g/dL (31.0-37.0); MCV 96.3 fL (80.0-100.0); MEAN PLATELET VOLUME 10.4 fL (7.4-10.4); MONOCYTES 13.2 % (2-11); NEUTROPHILS 67.2 % (40-80); PLATELET COUNT 117 10x3/uL (130-400); RBC 3.28 10x6/uL (4.00-5.40); RDW 18.6 % (11.5-14.5); WBC 5.9 10x3/uL (4.8-10.8)
[2018-07-06 08:45] VITALS: BP 110/69
--- NOTE | 2018-07-06 12:06 | MORECARE ---
CASE MANAGEMENT DISCHARGE SUMMARY PATIENT: VIN LABOY UNIT: [id number] ADM DATE: 07/01/18 AGE: 67 : 50 SEX: F ROOM/BED: D.2206 AUTHOR: TIMODOC PHYSICIAN: REFERRING PHYSICIAN: MITCH CASILLAS MD DATE OF SERVICE: 07/06/18 Discharge Plan Patient Name: VIN LABOY Facility: [facility]:[place] : 1950 Planned Disposition: Home Anticipated Discharge Date: Discharge Date: Expected LOS: Initial Reviewer: [id number] Initial Review Date: 07/01/2018 Generated: 07/06/18 1:06 pm Comments DCP- Discharge Planning Updated by [email or web address]: Elida Buenrostro on 07/06/18 10:[address] PATIENT WILL BE DISCHARGING HOME TODAY, IMM SERVED AND EXPLAINED. CM WILL CONTINUE TO FOLLOW AND ASSIST WITH DC PLANNING NEEDED. DCP- Discharge Planning Updated by [email or web address]: Elida Buenrostro on 07/05/18 2:[address] Patient Name: VIN LABOY Admission Status: Urgent Accout number: [id number] Admission Date: 07-01-2018 : 1950 Admission Diagnosis:ANEMIA, UNSPECIFIED Attending: MITCH CASILLAS Current LOS: 4 Anticipated DC Date: Planned Disposition: Home Primary Insurance: MEDICARE A & B Discharge Planning Comments: CM met with patient to assess discharge planning needs. Patient lives independently at home and her daughter lives with her where she plans on returning at discharge. She stated that there are 4 steps to her home. She has home O2 (concentrator and portable concentrator) [employer], electric wheelchair, walker. Her son will be the one to drive her home at DC. She does not think she will need HH at DC. CM will continue to follow and assist with DC planning needs. Learning Support Assistant: Elida Buenrostro DCPIA - Discharge Planning Initial Assessment Updated by [email or web address]: Elida Buenrostro on 07/05/18 3:07 pm * Is the patient Alert and Oriented? Yes * How many steps to enter\exit or inside your home? * PCP dr beatty * Pharmacy [facility] * Preadmission Environment Home with Family * ADLs Independent * Equipment Oxygen Power Chair or Electric Scooter Rolling Walker * Other Equipment portable o2 concentrator home o2 concentrator * List name and contact numbers for known caregivers / representatives who currently or will assist patient after discharge: ASIYA LABOY [phone] * Verbal permission to speak to the caregivers and representatives has been obtained from the patient. N/A * Community resources currently utilized None * Additional services required to return to the preadmission environment? No * Can the patient safely return to the preadmission environment? Yes * Has this patient been hospitalized within the prior 30 days at any hospital? No Coverage Notice Reviewer: [id number] Tricia Buenrostro Notice Issued Date-Time: 07/06/2018 11:45 Notice Type: IM Discharge Notice Notice Delivered To: Patient Relationship to Patient: Human Resources Compliance Manager Name: Delivery Method: HAND - Hand Delivered Mariah Days: Prior Verbal Notification: Recipient Understood Notice: Yes Recipient Signature: Yes Med Rec Note Co-signed by Attending: Coverage Notice Comment: Last DP export: 07/05/18 2:13 p Patient Name: VIN LABOY Page [id number] at 1206 All edits/amendments must be made on the electronic document DICTATION DATE: 07/06/18 1206 ENGINEERING DOCUMENTATION SPECIALIST: DAVID 07/06/18 1206 RPT#: [id number] DC DATE: STATUS: ADM IN [facility] [address] [place] [address] END OF REPORT
[2018-07-06 12:49] VITALS: BP 117/61
--- NOTE | 2018-07-07 07:57 | MORECARE ---
CASE MANAGEMENT DISCHARGE SUMMARY PATIENT: VIN LABOY ELIANA UNIT: [id number] ADM DATE: 07/01/18 AGE: 67 : 50 SEX: F ROOM/BED: D.2208 AUTHOR: KARINA GREENWOOD PHYSICIAN: REFERRING PHYSICIAN: MITCH CASILLAS MD DATE OF SERVICE: 07/07/18 Discharge Plan Patient Name: VIN LABOY Facility: [facility]:[place] : 1950 Planned Disposition: Home Anticipated Discharge Date: Discharge Date: 07/06/2018 Expected LOS: 0 Initial Reviewer: [email or web address] Initial Review Date: 07/01/2018 Generated: 07/07/18 8:57 am Comments DCP- Discharge Planning Updated by [email or web address]: Elida Buenrostro on 07/06/18 10:[address] PATIENT WILL BE DISCHARGING HOME TODAY, IMM SERVED AND EXPLAINED. CM WILL CONTINUE TO FOLLOW AND ASSIST WITH DC PLANNING NEEDED. DCP- Discharge Planning Updated by [email or web address]: Elida Buenrostro on 07/05/18 2:[address] Patient Name: VIN LABOY Admission Status: Urgent Accout number: [id number] Admission Date: 07-01-2018 : 1950 Admission Diagnosis:ANEMIA, UNSPECIFIED Attending: MITCH CASILLAS Current LOS: 4 Anticipated DC Date: Planned Disposition: Home Primary Insurance: MEDICARE A & B Discharge Planning Comments: CM met with patient to assess discharge planning needs. Patient lives independently at home and her daughter lives with her where she plans on returning at discharge. She stated that there are 4 steps to her home. She has home O2 (concentrator and portable concentrator) [employer], electric wheelchair, walker. Her son will be the one to drive her home at DC. She does not think she will need HH at DC. CM will continue to follow and assist with DC planning needs. Sizer Machine: Elida Buenrostro DCPIA - Discharge Planning Initial Assessment Updated by [email or web address]: Elida Buenrostro on 07/05/18 3:07 pm * Is the patient Alert and Oriented? Yes * How many steps to enter\exit or inside your home? * PCP dr beatty * [facility] * Preadmission Environment Home with Family * ADLs Independent * Equipment Oxygen Power Chair or Electric Scooter Rolling Walker * Other Equipment portable o2 concentrator home o2 concentrator * List name and contact numbers for known caregivers / representatives who currently or will assist patient after discharge: ASIYA LABOY [phone] * Verbal permission to speak to the caregivers and representatives has been obtained from the patient. N/A * Community resources currently utilized None * Additional services required to return to the preadmission environment? No * Can the patient safely return to the preadmission environment? Yes * Has this patient been hospitalized within the prior 30 days at any hospital? No Coverage Notice Reviewer: [id number] Tricia Buenrostro Notice Issued Date-Time: 07/06/2018 11:45 Notice Type: IM Discharge Notice Notice Delivered To: Patient Relationship to Patient: Carton Marker Machine Name: Delivery Method: HAND - Hand Delivered Mariah Days: Prior Verbal Notification: Recipient Understood Notice: Yes Recipient Signature: Yes Med Rec Note Co-signed by Attending: Coverage Notice Comment: Last DP export: 07/06/18 11:06 a Patient Name: VIN LABOY Page 05566 at 0757 All edits/amendments must be made on the electronic document DICTATION DATE: 07/07/18756 DATA PROCESSING SYSTEMS PROJECT PLANNER: DAVID 07/07/18756 RPT#: [id number] DC DATE:07/06/18 STATUS: DIS IN [facility] [address] [place] [address] END OF REPORT
== END 2018-07-06 12:15 | disposition home or self-care (01) | DRG 813 ==
LOC: D.MS 11:05 → D.SDCHOLD 11:05 → D.MS 11:28
PROVIDERS: Internal Medicine Gastroenterology; ADMIT Internal Medicine Hematology & Oncology
DX: D68.318 Other hemorrhagic disorder due to intrinsic circulating anticoagulants, antibodies, or inhibitors (principal); K92.1 Melena; D62 Acute posthemorrhagic anemia; I27.0 Primary pulmonary hypertension; C77.3 Secondary and unspecified malignant neoplasm of axilla and upper limb lymph nodes; I10 Essential (primary) hypertension; J44.9 Chronic obstructive pulmonary disease, unspecified; C50.919 Malignant neoplasm of unspecified site of unspecified female breast

== ENCOUNTER 2018-08-05 17:47 | Inpatient (IN) | payer MEDICARE, BC ==
[~2018-08-05] VITALS: Ht 167.6 cm; Wt 148.5 kg
[~2018-08-05 17:47] MED LIST changes: +ADCIRCA20 MG PO; +CLARITIN 10 MG10 MG PO; +IMODIUM2 MG PO
[2018-08-05] MEDS ORDERED: LASIX80 MG PO (18:18)
[2018-08-05] MEDS ORDERED: SINGULAIR10 MG PO (18:20)
[2018-08-05] MEDS ORDERED: ULTRAM50 MG PO (18:22)
[2018-08-05] MEDS ORDERED: IMODIUM2 MG PO (18:25)
[2018-08-05] MEDS ORDERED: FOLATE0.4 MG PO (18:28)
[2018-08-05] MEDS ORDERED: CARAFATE1 G PO (18:28)
[2018-08-05] MEDS ORDERED: CARTIA XT120 MG PO (18:29)
[2018-08-05] MEDS ORDERED: OMEPRAZOLE40 MG PO (18:31)
[2018-08-05 18:34] LABS: ALBUMIN 2.7 g/dL (3.4-5.0); ANION GAP 13.8 mmol/L (8-16); BILIRUBIN - TOTAL 0.27 mg/dL (0.2-1.3); CALCIUM 8.4 mg/dL (8.5-10.1); CARBON DIOXIDE 25.1 mmol/L (21.0-32.0); CREATININE - SERUM 1.3 mg/dL (0.6-1.3); POTASSIUM - SERUM 3.9 mmol/L (3.5-5.1); PROTEIN - SERUM 5.8 g/dL (6.4-8.2)
[2018-08-05 18:41] LABS: BASOPHILS 0.3 % (0-2); EOSINOPHILS 0 % (0-7); IMMATURE GRANULOCYTES 1.7 % (0-5); LYMPHOCYTES 18.6 % (15-50); MCH 30.6 pg (26.0-34.0); MCHC 31.3 g/dL (31.0-37.0); MCV 97.6 fL (80.0-100.0); MEAN PLATELET VOLUME 10.5 fL (7.4-10.4); NEUTROPHILS 74.4 % (40-80); PLATELET COUNT 104 10x3/uL (130-400); RDW 19.2 % (11.5-14.5); WBC 3.6 10x3/uL (4.8-10.8)
[2018-08-05 18:43] LABS: HEMATOCRIT 16.6 % (36.0-48.0); HEMOGLOBIN 5.2 g/dL (12-16)
[2018-08-05 19:00] VITALS: BP 91/48
[2018-08-05 20:00] VITALS: BP 91/53
[2018-08-05 20:59] LABS: INR 3.19 (0.85-1.17); PROTIME 31.9 SECONDS (11.6-15.0)
[2018-08-05 21:00] VITALS: BP 91/49
[2018-08-05 22:00] VITALS: BP 102/56
[2018-08-05 23:00] VITALS: BP 103/59
[2018-08-05 23:52] VITALS: BP 88/52; BMI 53.0
[2018-08-06] VITALS (24 sets, daily range): BP systolic 95–139; BP diastolic 51–85; Ht 167.6 cm; Wt 148.5 kg
[2018-08-06 04:31] LABS: APPEARANCE CLEAR (CLEAR); BILIRUBIN NEGATIVE (NEGATIVE); COLOR YELLOW (YELLOW); GLUCOSE NEGATIVE (NEGATIVE); KETONE NEGATIVE (NEGATIVE); NITRITE NEGATIVE (NEGATIVE); PROTEIN NEGATIVE (NEGATIVE); UROBILINOGEN NORMAL (NORMAL)
[2018-08-06 05:50] LABS: LYMPHOCYTES 30.5 % (15-50); MCH 30.9 pg (26.0-34.0); MCHC 33.8 g/dL (31.0-37.0); MEAN PLATELET VOLUME 10.2 fL (7.4-10.4); NEUTROPHILS 60.9 % (40-80); PLATELET COUNT 93 10x3/uL (130-400); RDW 18.9 % (11.5-14.5); WBC 3.8 10x3/uL (4.8-10.8)
[2018-08-06 05:52] LABS: HEMOGLOBIN 7.1 g/dL (12-16); MCV 91.3 fL (80.0-100.0)
[2018-08-06 06:05] LABS: ALBUMIN 2.7 g/dL (3.4-5.0); ANION GAP 11.7 mmol/L (8-16); BILIRUBIN - TOTAL 0.36 mg/dL (0.2-1.3); CALCIUM 8.2 mg/dL (8.5-10.1); CARBON DIOXIDE 28.2 mmol/L (21.0-32.0); CREATININE - SERUM 1.1 mg/dL (0.6-1.3); POTASSIUM - SERUM 3.9 mmol/L (3.5-5.1); PROTEIN - SERUM 5.8 g/dL (6.4-8.2)
[2018-08-06 06:07] LABS: INR 2.97 (0.85-1.17); PROTIME 30.2 SECONDS (11.6-15.0)
--- NOTE | 2018-08-06 16:20 | MORECARE ---
CASE MANAGEMENT DISCHARGE SUMMARY PATIENT: VIN PALACIO ELIANA UNIT: [id number] ADM DATE: 08/05/18 AGE: 67 : 50 SEX: F ROOM/BED: D.2308 AUTHOR: KARINA GREENWOOD PHYSICIAN: REFERRING PHYSICIAN: MITCH CASILLAS MD DATE OF SERVICE: 08/06/18 Discharge Plan Patient Name: VIN PALACIO [facility] [facility] 1950 Planned Disposition: Home Anticipated Discharge Date: Discharge Date: Expected LOS: Initial Reviewer: [email or web address] Initial Review Date: 08/06/2018 Generated: 08/06/18 5:19 pm DCPIA - Discharge Planning Initial Assessment Updated by [email or web address]: Verna Taylor on 08/06/18 4:13 pm * Is the patient Alert and Oriented? Yes * How many steps to enter\exit or inside your home? * PCP Eduard Willis * Pharmacy [facility] * Preadmission Environment Home with Family * ADLs Independent * Equipment Oxygen * Other Equipment home 02 and portable, electric wheelchair, BiPap, walker * List name and contact numbers for known caregivers / representatives who currently or will assist patient after discharge: Jefferson Palacio - [facility] - [phone] * Verbal permission to speak to the caregivers and representatives has been obtained from the patient. Yes * Community resources currently utilized None * Additional services required to return to the preadmission environment? No * Can the patient safely return to the preadmission environment? Yes * Has this patient been hospitalized within the prior 30 days at any hospital? Yes Patient Name: VIN PALACIO Page 40756 at 1620 All edits/amendments must be made on the electronic document DICTATION DATE: 08/06/181618 AUTOMOTIVE EXHAUST EMISSIONS TECHNICIAN: DAVID 08/06/181618 RPT#: [id number] DC DATE: STATUS: ADM IN [facility] [address] [place] [address] END OF REPORT
--- NOTE | 2018-08-06 16:29 | MORECARE ---
CASE MANAGEMENT DISCHARGE SUMMARY PATIENT: VIN PALACIO ELIANA UNIT: [id number] ADM DATE: 08/05/18 AGE: 67 : 50 SEX: F ROOM/BED: D.2302 AUTHOR: TIMO,DOC PHYSICIAN: REFERRING PHYSICIAN: MITCH CASILLAS MD DATE OF SERVICE: 08/06/18 Discharge Plan Patient Name: VIN PALACIO Facility: [facility]:[place] : 1950 Planned Disposition: Home Anticipated Discharge Date: Discharge Date: Expected LOS: Initial Reviewer: [id number] Initial Review Date: 08/06/2018 Generated: 08/06/18 5:28 pm Comments DCP- Discharge Planning Updated by [email or web address]: Verna Taylor on 08/06/18 3:[address] Patient Name: VIN PALACIO Admission Status: Elective Accout number: [id number] Admission Date: 08-05-2018 : 1950 Admission Diagnosis:GASTROINTESTINAL HEMORRHAGE, UNSPECIFIED Attending: MITCH CASILLAS Current LOS: 1 Anticipated DC Date: Planned Disposition: Home Primary Insurance: MEDICARE A & B Discharge Planning Comments: CM met with patient and her mother at bedside. Patient states that she lives at home with her disabled daughter. Patient plans on returning to her home upon discharge. Patient states that she has been getting chemo for breast cancer was brought here from Dr. Casillas's office. Patient states that she doesn't have home health services but her daughter does. Patient denies any discharge needs at this time. CM will continue to follow and assist as needed with discharge planning / needs. French Cord Binder: Verna Taylor DCPIA - Discharge Planning Initial Assessment Updated by [email or web address]: Verna Taylor on 08/06/18 4:13 pm * Is the patient Alert and Oriented? Yes * How many steps to enter\exit or inside your home? * PCP Eduard Willis * Pharmacy [facility] * Preadmission Environment Home with Family * ADLs Independent * Equipment Oxygen * Other Equipment home 02 and portable, electric wheelchair, BiPap, walker * List name and contact numbers for known caregivers / representatives who currently or will assist patient after discharge: Jefferson Palacio - son - [phone] * Verbal permission to speak to the caregivers and representatives has been obtained from the patient. Yes * Community resources currently utilized None * Additional services required to return to the preadmission environment? No * Can the patient safely return to the preadmission environment? Yes * Has this patient been hospitalized within the prior 30 days at any hospital? Yes Last DP export: 08/06/18 3:20 p Patient Name: VIN PALACIO Page 34892 at 1629 All edits/amendments must be made on the electronic document DICTATION DATE: 08/06/181627 AIR EXPORT LOGISTICS MANAGER: DAVID 08/06/181627 RPT#: [id number] DC DATE: STATUS: ADM IN [facility] [address] [place] [address] END OF REPORT
[2018-08-07] VITALS (24 sets, daily range): BP systolic 122–153; BP diastolic 72–99
[2018-08-07 05:37] LABS: BASOPHILS 0.3 % (0-2); EOSINOPHILS 1.3 % (0-7); HEMATOCRIT 26.7 % (36.0-48.0); HEMOGLOBIN 8.9 g/dL (12-16); IMMATURE GRANULOCYTES 0.5 % (0-5); LYMPHOCYTES 27.3 % (15-50); MCH 30.5 pg (26.0-34.0); MCHC 33.3 g/dL (31.0-37.0); MCV 91.4 fL (80.0-100.0); MEAN PLATELET VOLUME 10.8 fL (7.4-10.4); MONOCYTES 14.3 % (2-11); NEUTROPHILS 56.3 % (40-80); PLATELET COUNT 105 10x3/uL (130-400); RBC 2.92 10x6/uL (4.00-5.40); RDW 18.2 % (11.5-14.5); WBC 3.8 10x3/uL (4.8-10.8)
[2018-08-07 05:48] LABS: CALCIUM 8.5 mg/dL (8.5-10.1); CARBON DIOXIDE 25.7 mmol/L (21.0-32.0); CREATININE - SERUM 1.3 mg/dL (0.6-1.3); POTASSIUM - SERUM 3.7 mmol/L (3.5-5.1)
[2018-08-07 05:59] LABS: INR 1.94 (0.85-1.17); PROTIME 21.5 SECONDS (11.6-15.0)
[2018-08-07 15:55] LABS: HEMOGLOBIN 9.6 g/dL (12-16)
[2018-08-08] VITALS: BP 130/79
[2018-08-08 01:00] VITALS: BP 125/79
[2018-08-08 04:37] LABS: BASOPHILS 0.3 % (0-2); EOSINOPHILS 0.5 % (0-7); HEMATOCRIT 29.1 % (36.0-48.0); HEMOGLOBIN 9.6 g/dL (12-16); IMMATURE GRANULOCYTES 0.5 % (0-5); MCH 30.4 pg (26.0-34.0); MCV 92.1 fL (80.0-100.0); MEAN PLATELET VOLUME 10.1 fL (7.4-10.4); MONOCYTES 20.9 % (2-11); NEUTROPHILS 47.8 % (40-80); PLATELET COUNT 105 10x3/uL (130-400); RBC 3.16 10x6/uL (4.00-5.40); WBC 3.9 10x3/uL (4.8-10.8)
[2018-08-08 07:00] VITALS: BP 137/57
[2018-08-08 20:00] VITALS: BP 144/93
[2018-08-09 04:00] VITALS: BP 137/74
[2018-08-09 08:44] VITALS: BP 122/72
[2018-08-09 08:48] LABS: HEMATOCRIT 31.2 % (36.0-48.0); HEMOGLOBIN 9.9 g/dL (12-16); MCHC 31.7 g/dL (31.0-37.0); MEAN PLATELET VOLUME 10.2 fL (7.4-10.4); PLATELET COUNT 118 10x3/uL (130-400)
[2018-08-09 09:15] LABS: MCV 94.5 fL (80.0-100.0)
[2018-08-09 10:19] LABS: LYMPHOCYTES 28 % (15-50); MONOCYTES 18 % (2-11); NEUTROPHILS 54 % (40-80); PLATELET ESTIMATE NORMAL
[2018-08-09 13:16] VITALS: BP 141/95
[2018-08-09 17:29] VITALS: BP 145/86
[2018-08-09 20:00] VITALS: BP 141/90
[2018-08-10] VITALS: BP 123/76
[2018-08-10 04:00] VITALS: BP 127/73
[2018-08-10 09:23] VITALS: BP 129/69
[2018-08-10 11:24] LABS: BASOPHILS 0.2 % (0-2); EOSINOPHILS 0.2 % (0-7); HEMATOCRIT 30.8 % (36.0-48.0); HEMOGLOBIN 9.6 g/dL (12-16); IMMATURE GRANULOCYTES 0.4 % (0-5); LYMPHOCYTES 16.8 % (15-50); MCH 29.6 pg (26.0-34.0); MCHC 31.2 g/dL (31.0-37.0); MCV 95.1 fL (80.0-100.0); MEAN PLATELET VOLUME 10.9 fL (7.4-10.4); MONOCYTES 22.6 % (2-11); NEUTROPHILS 59.8 % (40-80); PLATELET COUNT 113 10x3/uL (130-400); RBC 3.24 10x6/uL (4.00-5.40); RDW 18.6 % (11.5-14.5); WBC 4.8 10x3/uL (4.8-10.8)
[2018-08-10 11:33] LABS: ANION GAP 12.4 mmol/L (8-16); CALCIUM 8.4 mg/dL (8.5-10.1); CREATININE - SERUM 1.1 mg/dL (0.6-1.3); POTASSIUM - SERUM 3.4 mmol/L (3.5-5.1)
[2018-08-10 14:21] VITALS: BP 139/84
[2018-08-10 17:18] VITALS: BP 142/85
[2018-08-10 20:00] VITALS: BP 127/69
[2018-08-11] VITALS: BP 110/69
[2018-08-11 04:00] VITALS: BP 118/65
[2018-08-11 05:08] LABS: BASOPHILS 0.2 % (0-2); EOSINOPHILS 0.3 % (0-7); HEMATOCRIT 31.5 % (36.0-48.0); HEMOGLOBIN 9.8 g/dL (12-16); IMMATURE GRANULOCYTES 0.8 % (0-5); MCH 30.1 pg (26.0-34.0); MCHC 31.1 g/dL (31.0-37.0); MCV 96.6 fL (80.0-100.0); MONOCYTES 18.2 % (2-11); NEUTROPHILS 56.5 % (40-80); PLATELET COUNT 120 10x3/uL (130-400); RBC 3.26 10x6/uL (4.00-5.40); RDW 18.7 % (11.5-14.5)
[2018-08-11 05:24] LABS: CALCIUM 8.6 mg/dL (8.5-10.1); CARBON DIOXIDE 28.8 mmol/L (21.0-32.0); POTASSIUM - SERUM 3.8 mmol/L (3.5-5.1)
[2018-08-11 08:00] VITALS: BP 121/74
--- NOTE | 2018-08-11 11:35 | MORECARE ---
CASE MANAGEMENT DISCHARGE SUMMARY PATIENT: VIN PALACIO UNIT: [id number] ADM DATE: 08/05/18 AGE: 67 : 50 SEX: F ROOM/BED: D.2203 AUTHOR: TIMO,DOC PHYSICIAN: REFERRING PHYSICIAN: MITCH CASILLAS MD DATE OF SERVICE: 08/11/18 Discharge Plan Patient Name: VIN PALACIO Facility: [facility]:[place] : 1950 Planned Disposition: Home Anticipated Discharge Date: Discharge Date: Expected LOS: Initial Reviewer: [email or web address] Initial Review Date: 08/06/2018 Generated: 08/11/18 12:35 pm Comments DCP- Discharge Planning Updated by [email or web address]: Elida Buenrostro on 08/11/18 10:[address] Patient would like to go to inpatient rehab. Will call Dr Casillas's office and see if that is an option. IMM served and explained DCP- Discharge Planning Updated by [email or web address]: Verna Taylor on 08/06/18 3:[address] Patient Name: VIN PALACIO Admission Status: Elective Accout number: [id number] Admission Date: 08-05-2018 : 1950 Admission Diagnosis:GASTROINTESTINAL HEMORRHAGE, UNSPECIFIED Attending: MITCH CASILLAS Current LOS: 1 Anticipated DC Date: Planned Disposition: Home Primary Insurance: MEDICARE A & B Discharge Planning Comments: CM met with patient and her mother at bedside. Patient states that she lives at home with her disabled daughter. Patient plans on returning to her home upon discharge. Patient states that she has been getting chemo for breast cancer was brought here from Dr. Casillas's office. Patient states that she doesn't have home health services but her daughter does. Patient denies any discharge needs at this time. CM will continue to follow and assist as needed with discharge planning / needs. Hay Buckler: Verna Taylor DCPIA - Discharge Planning Initial Assessment Updated by [email or web address]: Verna Taylor on 08/06/18 4:13 pm * Is the patient Alert and Oriented? Yes * How many steps to enter\exit or inside your home? * PCP Eduard Willis * Pharmacy [facility] * Preadmission Environment Home with Family * ADLs Independent * Equipment Oxygen * Other Equipment home 02 and portable, electric wheelchair, BiPap, walker * List name and contact numbers for known caregivers / representatives who currently or will assist patient after discharge: Jefferson Palacio - kianna - [phone] * Verbal permission to speak to the caregivers and representatives has been obtained from the patient. Yes * Community resources currently utilized None * Additional services required to return to the preadmission environment? No * Can the patient safely return to the preadmission environment? Yes * Has this patient been hospitalized within the prior 30 days at any hospital? Yes Coverage Notice Reviewer: [id number] Tricia Buenrostro Notice Issued Date-Time: 08/11/2018 11:20 Notice Type: IM Discharge Notice Notice Delivered To: Patient Relationship to Patient: Document Imaging Specialist Name: Delivery Method: HAND - Hand Delivered Mariah Days: Prior Verbal Notification: Recipient Understood Notice: Yes Recipient Signature: Yes Med Rec Note Co-signed by Attending: Coverage Notice Comment: Last DP export: 08/06/18 3:29 p Patient Name: VIN PALACIO Page 44737 at 1135 All edits/amendments must be made on the electronic document DICTATION DATE: 08/11/18 1135 CREDIT COLLECTIONS CLERK: DAVID 08/11/18 1135 RPT#: [id number] DC DATE: STATUS: ADM IN [facility] [address] [place] [address] END OF REPORT
[2018-08-11 13:25] VITALS: BP 131/72
[2018-08-11 16:30] VITALS: BP 125/76
--- NOTE | 2018-08-12 14:26 | MORECARE ---
CASE MANAGEMENT DISCHARGE SUMMARY PATIENT: VIN PALACIO ELIANA UNIT: [id number] ADM DATE: 08/05/18 AGE: 67 : 50 SEX: F ROOM/BED: D.2203 AUTHOR: TIMO,DOC PHYSICIAN: REFERRING PHYSICIAN: MITCH CASILLAS MD DATE OF SERVICE: 08/12/18 Discharge Plan Patient Name: VIN PALACIO Facility: [facility]:[place] : 1950 Planned Disposition: Home Anticipated Discharge Date: Discharge Date: 08/11/2018 Expected LOS: 0 Initial Reviewer: [email or web address] Initial Review Date: 08/06/2018 Generated: 08/12/18 3:26 pm Comments DCP- Discharge Planning Updated by [email or web address]: Elida Buenrostro on 08/11/18 10:[address] Patient would like to go to inpatient rehab. Will call Dr Casillas's office and see if that is an option. IMM served and explained DCP- Discharge Planning Updated by [email or web address]: Verna Taylor on 08/06/18 3:[address] Patient Name: VIN PALACIO Admission Status: Elective Accout number: [id number] Admission Date: 08-05-2018 : 1950 Admission Diagnosis:GASTROINTESTINAL HEMORRHAGE, UNSPECIFIED Attending: MITCH CASILLAS Current LOS: 1 Anticipated DC Date: Planned Disposition: Home Primary Insurance: MEDICARE A & B Discharge Planning Comments: CM met with patient and her mother at bedside. Patient states that she lives at home with her disabled daughter. Patient plans on returning to her home upon discharge. Patient states that she has been getting chemo for breast cancer was brought here from Dr. Casillas's office. Patient states that she doesn't have home health services but her daughter does. Patient denies any discharge needs at this time. CM will continue to follow and assist as needed with discharge planning / needs. Vp Strategic Planning: Verna Taylor DCPIA - Discharge Planning Initial Assessment Updated by [email or web address]: Verna Taylor on 08/06/18 4:13 pm * Is the patient Alert and Oriented? Yes * How many steps to enter\exit or inside your home? * PCP Eduard Willis * Pharmacy [facility] * Preadmission Environment Home with Family * ADLs Independent * Equipment Oxygen * Other Equipment home 02 and portable, electric wheelchair, BiPap, walker * List name and contact numbers for known caregivers / representatives who currently or will assist patient after discharge: Jefferson Palacio - kianna - [phone] * Verbal permission to speak to the caregivers and representatives has been obtained from the patient. Yes * Community resources currently utilized None * Additional services required to return to the preadmission environment? No * Can the patient safely return to the preadmission environment? Yes * Has this patient been hospitalized within the prior 30 days at any hospital? Yes Coverage Notice Reviewer: [id number] Tricia Buenrostro Notice Issued Date-Time: 08/11/2018 11:20 Notice Type: IM Discharge Notice Notice Delivered To: Patient Relationship to Patient: Mechanical Equipment Test Engineer Name: Delivery Method: HAND - Hand Delivered Mariah Days: Prior Verbal Notification: Recipient Understood Notice: Yes Recipient Signature: Yes Med Rec Note Co-signed by Attending: Coverage Notice Comment: Last DP export: 08/11/18 10:35 a Patient Name: VIN PALACIO Page 92059 at 1426 All edits/amendments must be made on the electronic document DICTATION DATE: 08/12/181424 LICENSED FUNERAL DIRECTOR AND EMBALMER: DAVID 08/12/181424 RPT#: [id number] DC DATE:08/11/18 STATUS: DIS IN [facility] [address] [place] [address] END OF REPORT
== END 2018-08-11 17:03 | DRG 811 ==
LOC: D.MS 17:47 → D.ICU 17:47 → D.MS 08-08 20:42
PROVIDERS: Internal Medicine Gastroenterology; ADMIT Internal Medicine Hematology & Oncology
PROC: 0DJ08ZZ Inspection of Upper Intestinal Tract, Via Natural or Artificial Opening Endoscopic (ICD-10-PCS; principal; 2018-08-06 07:30)
DX: D64.9 Anemia, unspecified (principal); K29.71 Gastritis, unspecified, with bleeding; C50.919 Malignant neoplasm of unspecified site of unspecified female breast; I27.20 Pulmonary hypertension, unspecified; I10 Essential (primary) hypertension

== ENCOUNTER 2018-08-11 17:21 | Inpatient (IN) | payer MEDICARE, BC ==
[~2018-08-11] VITALS: Ht 170.2 cm; Wt 145.1 kg
[~2018-08-11 17:21] MED LIST changes: +CARAFATE1 G PO; +CARTIA XT120 MG PO; +FOLATE0.4 MG PO; +LASIX80 MG PO; +OMEPRAZOLE40 MG PO; +ULTRAM50 MG PO
[2018-08-11 20:48] VITALS: BP 116/68; BMI 50.2
[2018-08-12 06:31] LABS: BASOPHILS 0.1 % (0-2); EOSINOPHILS 0 % (0-7); HEMOGLOBIN 9.3 g/dL (12-16); IMMATURE GRANULOCYTES 0.5 % (0-5); LYMPHOCYTES 15.1 % (15-50); MCH 29.6 pg (26.0-34.0); MCV 95.5 fL (80.0-100.0); MEAN PLATELET VOLUME 10.2 fL (7.4-10.4); MONOCYTES 11.3 % (2-11); PLATELET COUNT 118 10x3/uL (130-400); RBC 3.14 10x6/uL (4.00-5.40)
[2018-08-12 06:39] LABS: CALCIUM 8.7 mg/dL (8.5-10.1); CARBON DIOXIDE 26.4 mmol/L (21.0-32.0); CREATININE - SERUM 1.2 mg/dL (0.6-1.3); INR 1.26 (0.85-1.17); POTASSIUM - SERUM 3.4 mmol/L (3.5-5.1); PROTIME 15.3 SECONDS (11.6-15.0)
[2018-08-12 06:45] LABS: WBC 10.1 10x3/uL (4.8-10.8)
[2018-08-12 08:00] VITALS: BP 125/72
[2018-08-12 14:06] VITALS: Ht 170.2 cm; Wt 145.1 kg
[2018-08-12 21:10] VITALS: BP 127/62
[2018-08-13 06:56] LABS: BASOPHILS 0.1 % (0-2); EOSINOPHILS 0.1 % (0-7); HEMATOCRIT 29.6 % (36.0-48.0); HEMOGLOBIN 9.1 g/dL (12-16); IMMATURE GRANULOCYTES 0.6 % (0-5); MCH 29.7 pg (26.0-34.0); MCHC 30.7 g/dL (31.0-37.0); MCV 96.7 fL (80.0-100.0); MEAN PLATELET VOLUME 10.4 fL (7.4-10.4); MONOCYTES 8.7 % (2-11); NEUTROPHILS 80.5 % (40-80); PLATELET COUNT 118 10x3/uL (130-400); RBC 3.06 10x6/uL (4.00-5.40); RDW 19.1 % (11.5-14.5)
[2018-08-13 07:04] LABS: ANION GAP 9.7 mmol/L (8-16); CALCIUM 8.3 mg/dL (8.5-10.1); CARBON DIOXIDE 28.7 mmol/L (21.0-32.0); CREATININE - SERUM 1.3 mg/dL (0.6-1.3); POTASSIUM - SERUM 3.4 mmol/L (3.5-5.1)
[2018-08-13 07:15] LABS: WBC 12.9 10x3/uL (4.8-10.8)
[2018-08-13 07:25] LABS: INR 1.26 (0.85-1.17); PROTIME 15.3 SECONDS (11.6-15.0)
[2018-08-13 09:35] VITALS: BP 122/53
[2018-08-13 21:21] VITALS: BP 100/44
[2018-08-14 07:00] LABS: INR 1.22 (0.85-1.17); PROTIME 14.8 SECONDS (11.6-15.0)
[2018-08-14 07:16] VITALS: BP 112/26
[2018-08-15 06:09] VITALS: BP 119/50
[2018-08-15 07:04] LABS: INR 1.21 (0.85-1.17); PROTIME 14.8 SECONDS (11.6-15.0)
[2018-08-15 08:14] VITALS: BP 104/48
[2018-08-15 21:56] VITALS: BP 105/54
[2018-08-16 08:21] LABS: INR 1.19 (0.85-1.17); PROTIME 14.5 SECONDS (11.6-15.0)
[2018-08-16 08:31] VITALS: BP 99/62
[2018-08-16 09:27] LABS: BASOPHILS 0.1 % (0-2); EOSINOPHILS 0.1 % (0-7); HEMATOCRIT 29.3 % (36.0-48.0); HEMOGLOBIN 8.9 g/dL (12-16); IMMATURE GRANULOCYTES 0.3 % (0-5); LYMPHOCYTES 11.6 % (15-50); MCH 29.7 pg (26.0-34.0); MCHC 30.4 g/dL (31.0-37.0); MCV 97.7 fL (80.0-100.0); MEAN PLATELET VOLUME 10.7 fL (7.4-10.4); MONOCYTES 10.9 % (2-11); PLATELET COUNT 122 10x3/uL (130-400); RDW 19.3 % (11.5-14.5); WBC 9.7 10x3/uL (4.8-10.8)
[2018-08-16 09:31] LABS: ANION GAP 11.3 mmol/L (8-16); CARBON DIOXIDE 33.2 mmol/L (21.0-32.0); CREATININE - SERUM 1.5 mg/dL (0.6-1.3); POTASSIUM - SERUM 3.5 mmol/L (3.5-5.1)
[2018-08-16 20:00] VITALS: BP 107/57
[2018-08-17 06:57] LABS: INR 1.24 (0.85-1.17); PROTIME 15.1 SECONDS (11.6-15.0)
[2018-08-17 08:20] VITALS: BP 100/52
[2018-08-17 20:00] VITALS: BP 98/42
[2018-08-18 07:48] LABS: BASOPHILS 0.1 % (0-2); EOSINOPHILS 0 % (0-7); HEMATOCRIT 29.5 % (36.0-48.0); HEMOGLOBIN 9.1 g/dL (12-16); IMMATURE GRANULOCYTES 0.3 % (0-5); LYMPHOCYTES 14.3 % (15-50); MCH 29.5 pg (26.0-34.0); MCHC 30.8 g/dL (31.0-37.0); MCV 95.8 fL (80.0-100.0); MEAN PLATELET VOLUME 10.7 fL (7.4-10.4); NEUTROPHILS 73.3 % (40-80); PLATELET COUNT 118 10x3/uL (130-400); RBC 3.08 10x6/uL (4.00-5.40); RDW 20.1 % (11.5-14.5); WBC 7.9 10x3/uL (4.8-10.8)
[2018-08-18 07:52] LABS: INR 1.17 (0.85-1.17); PROTIME 14.4 SECONDS (11.6-15.0)
[2018-08-18 08:00] VITALS: BP 89/47
--- NOTE | 2018-08-18 09:00 | RHP ---
PATIENT: VIN LABOY MEDICAL RECORD: [id number] ACCOUNT: [id number] LOCATION:[facility] : 50 ADMISSION DATE: 08/11/18 REHABILITATION HISTORY AND PHYSICAL EXAMINATION POST ADMISSION PHYSICIAN EXAMINATION DATE OF ADMISSION: 08/11/2018 ADMITTING DIAGNOSES: Debility secondary to severe anemia and GI bleed. HISTORY OF PRESENT ILLNESS: The patient was admitted to the inpatient rehab with severe anemia and GI bleed. She is a 67-year-old morbidly obese female that was a direct admit to the ICU from Dr. Andrew's office after presenting with severe anemia with a hemoglobin of 5.5, weakness, melena, hematochezia stools for the past 48 hours prior to her hospital admit. She has been receiving adjunctive chemotherapy for carcinoma of the breast at Dr. Andrew's office for the previous 3 months. She was symptomatic when admitted to the hospital with dyspnea, lethargy and fatigue. GI was consulted. She was seen in June for the same symptoms. She underwent an EGD on 08/06/2018 and found to have erosive esophagitis, hemorrhagic erosive gastritis and duodenitis. She has received blood transfusions. She has been followed by oncology and gastroenterology during her stay. She was transferred out of the ICU on 08/08/2018 to the medical floor. She is currently on increased O2. She has shortness of breath at times. They are monitoring her stools for any signs of further bleeding. 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 These are all barriers to her discharge home at this time. Lives at home with her disabled daughter. She is moderately independent to independent with ADLs and mobility. She is currently set up for moderate assist with her ADLs and moderate assist to total assist for mobility. She plans to return home with her disabled daughter at prior level of function or better. Continue with her chemotherapy treatments with Dr. Andrew after she regains her strength back during her acute hospital stay. COMORBIDITIES: Include erosive esophagitis, gastritis, duodenitis, deconditioning, debility, impaired mobility, dyspnea, self-care deficits, morbid obesity, severe anemia, pulmonary hypertension, breast cancer, GI bleed. PAST MEDICAL HISTORY: Significant for vertigo, hypertension, pulmonary hypertension, asthma, breast cancer, arthritis, menopause and depression. PAST SURGICAL HISTORY: Includes gallbladder surgery, knee surgery, tonsillectomy, adenoidectomy, rotator cuff, bladder tack, tubal ligation, cystocele and rectocele repair and peritoneum repair. ALLERGIES: No known drug allergies. CURRENT MEDICATIONS: Include Tadalfil daily. She is on Tracleer. A chemotherapeutic drug daily. She is on Protonix 40 mg daily, Lasix 80 mg daily, folic acid 0.4 mg daily, ferrous sulfate 325 daily, diltiazem 120 daily, calcium carbonate 500 mg daily, loperamide 2 mg before meals and at bedtime, tramadol 50 mg b.i.d. p.r.n., Carafate 1 gram before meals and at bedtime, Zoloft 100 mg at bedtime, Singulair 10 mg at bedtime, Lotensin 20 mg b.i.d. HABITS: No alcohol or tobacco use. HISTORY AND PHYSICAL [id number] VIN LABOY FAMILY HISTORY: Noncontributory. SOCIAL HISTORY: The patient hopes to return back home after her therapy and get back to her prior level of functioning. REVIEW OF SYSTEMS: GENERAL: Does complain of some weakness and fatigue. HEENT: Denies cold, cough, or congestion. CARDIOVASCULAR: Denies chest pain. PHYSICAL EXAMINATION: VITAL SIGNS: Stable, afebrile. Generally, a morbidly obese female, in no acute distress, alert upon exam. HEENT: Normocephalic and atraumatic. Mucosa moist. NECK: Supple. No lymphadenopathy. LUNGS: Clear at this time. HEART: Regular rate and rhythm. No murmurs, rubs or gallops. ABDOMEN: Benign. EXTREMITIES: No clubbing, cyanosis or edema. NEUROLOGIC: She does have noted proximal muscle weakness. LABORATORY DATA: Her white count is 10.4, H&H of 9.3 and 30.0 and platelet count is noted to be 118. Her INR is 1.26. Her sodium is 144, potassium 3.4, BUN and creatinine of 24 and 1.2, and blood sugar was noted to be 124. ASSESSMENT: This is a 67-year-old female patient admitted to rehab with a working diagnosis of debility complicated by morbid obesity and gastrointestinal bleed. The patient has potential to make improvement. We instituted the following multidisciplinary therapies including, but not limited to physical, occupational, respiratory, speech, nutritional services, prosthetics and orthotics. Given her complex medical conditions and risks for more complications, rehabilitation services cannot be provided at a low level of care such as skilled nurse facility. PLAN: 1. Admit to [facility] for intensive inpatient therapy to include the following disciplines: A. Physical therapy to improve gait, all transfer skills and bed mobility to a modified independent level. B. Occupational therapy to a modified independent level. C. Case management to assist with discharge planning and placement options. D. Nutrition to assist with nutritional needs. E. Rehabilitation nursing to assist in monitoring the patient's underlying medical conditions and to assist with any type of bowel or bladder management. 2. The patient's current medication and medical care will be continued. 3. The patient will be placed on standard fall precautions. 4. Watch her H&H closely. 5. I am going to see her back in the a.m. and once again we will watch for any signs of further bleeding. TRANSINT:[id number] Voice Confirmation ID: [id number] DOCUMENT ID: [id number] SMITH notes whether there has been none or any medical/functional change since admission: HISTORY AND PHYSICAL [id number] VIN LABOY - No change since preadmission screen. SMITH attests patient continues to be appropriate for IRF: - Continues to be appropriate. ADELA KATHLEEN MD at 0900 CC: [id number] DICTATION DATE: 08/12/18824 PATENT LAWYER: 08/12/18 0933 ADM IN [facility] [address] [place] [address]
[2018-08-18 18:17] LABS: APPEARANCE HAZY (CLEAR); BILIRUBIN NEGATIVE (NEGATIVE); COLOR YELLOW (YELLOW); GLUCOSE NEGATIVE (NEGATIVE); KETONE NEGATIVE (NEGATIVE); NITRITE NEGATIVE (NEGATIVE); PROTEIN TRACE mg/dL (NEGATIVE); SPECIFIC GRAVITY 1.015 (1.005-1.020); UROBILINOGEN NORMAL (NORMAL)
[2018-08-18 18:19] LABS: BACTERIA MANY /hpf (NONE SEEN); EPITHELIAL CELLS 0-5 /hpf (0-5); RED CELLS - URINE OCC /hpf (0-5)
== END 2018-08-18 17:45 | disposition home or self-care (01) | DRG 947 ==
LOC: D.REHAB 17:21
PROVIDERS: ADMIT Emergency Medicine; ATTEND Emergency Medicine
DX: R53.81 Other malaise (principal); K22.11 Ulcer of esophagus with bleeding; K22.10 Ulcer of esophagus without bleeding; D50.0 Iron deficiency anemia secondary to blood loss (chronic); K29.70 Gastritis, unspecified, without bleeding; K29.80 Duodenitis without bleeding; R06.00 Dyspnea, unspecified; E66.01 Morbid (severe) obesity due to excess calories; I27.20 Pulmonary hypertension, unspecified; C50.919 Malignant neoplasm of unspecified site of unspecified female breast

== ENCOUNTER → 2019-01-18 08:56 | Outpatient (CLI) | payer MEDICARE, BC ==
[2018-08-12 14:06] VITALS: BMI 50.1
--- NOTE | ~2019-01-18 | EC ---
PATIENT:VIN LABOY DATE OF SERVICE: 01/18/19 SEX: F MEDICAL RECORD: [id number] DATE OF : 50 [facility] AGE OF PATIENT: 68 ADMISSION DATE: 01/18/19 REFERRING PHYSICIAN: INTERPRETING PHYSICIAN: COOKIE DONALDSON MD ECHOCARDIOGRAM REPORT ECHO CHARGES 4 ECHO COMPLETE Date: 01/18/19 CLINICAL DIAGNOSIS: CANCER PATIENT ECHOCARDIOGRAPHIC MEASUREMENTS (adult normal given) AC root (d.<3.7cm) 3.5 cm LV Septum d (<1.2 cm> 1.3 cm Valve Excursion 1.4 cm LV Septum (systole) 1.4 cm Left Atria (s.<4.0cm> 3.5 cm LVPW d(<1.2cm) 0.6 cm RV (d.<2.3cm) 5.6 cm LVPW (sytole) 1.1 cm LV diastole(<5.6CM) 5.0 cm MV E-F(>70mm/sec) cm LV systole 3.8 cm LVOT Diameter 2.3 cm MV exc.(>10mm) cm Est.ejection fraction (50-75%) % DOPPLER: LVIT cm/sec A 113 cm/sec E 91 cm/sec LA cm/sec RVSP 72.0 mmHg LVOT 111 cm/sec AOP1/2T m/s Asc. Ao 365 cm/sec RVOT 96 cm/sec RA cm/sec PA 85 cm/sec AV Gradient Peak 53.4 mmHg AV Mean 36.8 mmHg AV Area 0.8 cm MV Gradient Peak 4.7 mmHg MV Mean 2.8 mmHg MV Area cm COMMENTS: Newspaper Reporter: [facility] Quality Improvement Coordinator (Rn): 1 Dr. Donaldson TAPE# PACS Pericardial Effusion N DATE OF SERVICE: 01/18/2019 FINDINGS: 1. Left ventricular chamber size is within normal limits. Left ventricular systolic function is normal. Overall ejection fraction estimated at 60%. 2. Left atrium is upper limits of normal. Right atrium and right ventricular chamber sizes are [id number]-um-ubaucxvdvf dilated. 3. Valvular structures have normal structure and motion. 4. Doppler interrogation reveals moderate tricuspid regurgitation, no other valvular insufficiency or stenosis; however, pulmonary systolic pressure is ECHOCARDIOGRAM REPORT [id number] VIN LABOY significantly elevated estimated 72 mmHg. 5. No evidence of pericardial effusion or left ventricular thrombus. TRANSINT:[id number] Voice Confirmation ID: [id number] DOCUMENT ID: [id number] COOKIE DONALDSON MD CC: [id number] DICTATION DATE: 01/18/19 1028 PLANT ENGINEERING SUPERVISOR: 01/18/19 1040 REG [facility] [address] [place] [id number]
== END | disposition home or self-care (01) ==
LOC: D.ECHO 08:56
PROVIDERS: ATTEND Internal Medicine Hematology & Oncology
DX: Z51.11 Encounter for antineoplastic chemotherapy (principal)

== ENCOUNTER → 2020-03-20 13:05 | Outpatient (CLI) | payer MEDICARE, BC ==
[2018-08-12 14:06] VITALS: BMI 50.1
--- NOTE | ~2020-03-20 | EC ---
PATIENT:VIN LABOY DATE OF SERVICE: 03/20/20 SEX: F MEDICAL RECORD: [id number] DATE OF : 50 LOCATION:[facility] AGE OF PATIENT: 69 ADMISSION DATE: 03/20/20 REFERRING PHYSICIAN: INTERPRETING PHYSICIAN: CECY PETTIT MD ECHOCARDIOGRAM REPORT ECHO CHARGES 4 ECHO COMPLETE Date: 03/20/20 CLINICAL DIAGNOSIS: HX OF PULMONARY HTN/ TRICUSPID REGURG ECHOCARDIOGRAPHIC MEASUREMENTS (adult normal given) AC root (d.<3.7cm) 4.2 cm LV Septum d (<1.2 cm> 1.4 cm Valve Excursion 2.0 cm LV Septum (systole) 1.7 cm Left Atria (s.<4.0cm> 3.7 cm LVPW d(<1.2cm) 1.7 cm RV (d.<2.3cm) 5.4 cm LVPW (sytole) 1.8 cm LV diastole(<5.6CM) 3.9 cm MV E-F(>70mm/sec) cm LV systole 2.3 cm LVOT Diameter 2.1 cm MV exc.(>10mm) 1.4 cm Est.ejection fraction (50-75%) % DOPPLER: LVIT cm/sec A 103.0cm/sec E 70.0 cm/sec LA cm/sec RVSP 89 mmHg LVOT 103 cm/sec AOP1/2T m/s Asc. Ao 218 cm/sec RVOT 102 cm/sec RA cm/sec PA 150 cm/sec AV Gradient Peak 19.07mmHg AV Mean 9.53 mmHg AV Area 1.7 cm MV Gradient Peak 8.13 mmHg MV Mean 4.20 mmHg MV Area cm COMMENTS: Director Traffic And Planning: 2 CULLEN SHAH Potato Chip Cooker Machine: 3 Dr. Hall TAPE# PACS Pericardial Effusion N DATE OF SERVICE: Adequate 2D, color flow imaging, spectral Doppler, and M-mode. LVH is present. LV internal dimensions are normal. Wall motion is normal. EF is greater than or equal to 55%. Aortic valve is tricuspid. No evidence of stenosis by Doppler interrogation. Left atrium is normal at 3.7 cm. Mitral valve shows no prolapse. Trace MR. Right-sided chambers are grossly normal. Moderate TR by color flow imaging. ECHOCARDIOGRAM REPORT [id number] VIN LABOY ELIANA TRANSINT:[id number] Voice Confirmation ID: [id number] DOCUMENT ID: [id number] CECY PETTIT MD CC: [id number] DICTATION DATE: 03/20/20 154 BASKETBALL COMMENTATOR: 03/21/20 0040 DEP CLI 03/20/20 [place] [id number] [place] [id number]
== END | disposition home or self-care (01) ==
LOC: D.HCCECHO 13:00
PROVIDERS: ATTEND Internal Medicine Interventional Cardiology
DX: I27.20 Pulmonary hypertension, unspecified (principal)